=== PATIENT | male | born 1960 | race Caucasian/White ===

== ENCOUNTER → 2017-07-27 | Outpatient (REF) | payer OTHER | LOC: M SFHCLERA 09:32 | DX: R30.0 Dysuria (principal) | CPT/HCPCS: 87086 ==

== ENCOUNTER → 2017-07-27 | Outpatient (CLI) | payer OTHER | LOC: M LRY 09:54 | DX: R30.0 Dysuria (principal) ==

== ENCOUNTER 2023-02-17 07:25 | Outpatient (CLI) | payer OTHER ==
[~2023-02-17] VITALS: Ht 180.3 cm; Wt 109.0 kg
[~2023-02-17 07:25] MED LIST: ADDE30CA3 PO; ALBUTEROL SULFATE 2.5MG/0.5ML INH NEB SOLN INH PRN; EPINEPHrine INJ 1 MG/ML 1ML AMP IM PRN; TRAZ-257 PO; VIST50CA PO; XANA2TAB2 PO; ZOLO100T PO; diphenhydrAMINE 50MG/ML VIAL IV PRN; methylPREDNISolone 125MG 2ML VIAL IV PRN
[2023-02-17 08:04] VITALS: BP 139/91; TEMP 97.9; O2SAT 99
[2023-02-17] MEDS ORDERED: methylPREDNISolone 125MG 2ML VIAL IV ONE (08:30)
[2023-02-17] MEDS ORDERED: diphenhydrAMINE 50MG CAP PO ONE (08:30)
[2023-02-17] MEDS ORDERED: riTUXimab 1,000 MG in NS 900 ML IV ONE (08:30)
[2023-02-17] MEDS ORDERED: ACETAMINOPHEN TAB 650MG DOSE (2X325MG) PO ONE (08:30)
[2023-02-17 09:00] VITALS: BP 160/86; TEMP 97.9; O2SAT 98
[2023-02-17 10:00] VITALS: BP 121/69; TEMP 98.1; O2SAT 97
[2023-02-17 10:30] VITALS: BP 135/69; TEMP 98.3; O2SAT 96
[2023-02-17 11:30] VITALS: BP 161/79; TEMP 97.6; O2SAT 96
[2023-02-17 12:40] VITALS: BP 172/81; TEMP 97.9; O2SAT 97
== END 2023-02-17 12:50 ==
LOC: M INFU 07:25
PROVIDERS: ATTEND Internal Medicine Rheumatology
DX: M06.09 Rheumatoid arthritis without rheumatoid factor, multiple sites (principal); Z88.8 Allergy status to other drugs, medicaments and biological substances
CPT/HCPCS: 96413; 96415; J2930; J9312

== ENCOUNTER 2023-03-03 06:42 | Outpatient (CLI) | payer OTHER ==
[~2023-03-03] VITALS: Ht 180.3 cm; Wt 106.5 kg
[~2023-03-03 06:42] MED LIST changes: -ALBUTEROL SULFATE 2.5MG/0.5ML INH NEB SOLN INH PRN; -EPINEPHrine INJ 1 MG/ML 1ML AMP IM PRN; -diphenhydrAMINE 50MG/ML VIAL IV PRN; -methylPREDNISolone 125MG 2ML VIAL IV PRN
[2023-03-03 07:00] VITALS: BP 142/92; O2SAT 99
[2023-03-03] MEDS ORDERED: ALBUTEROL SULFATE 2.5MG/0.5ML INH NEB SOLN INH PRN (07:01)
[2023-03-03] MEDS ORDERED: EPINEPHrine INJ 1 MG/ML 1ML AMP IM PRN (07:01)
[2023-03-03] MEDS ORDERED: methylPREDNISolone 125MG 2ML VIAL IV PRN (07:01)
[2023-03-03] MEDS ORDERED: diphenhydrAMINE 50MG/ML VIAL IV PRN (07:01)
[2023-03-03] MEDS ORDERED: ACETAMINOPHEN 650MG PO PRIOR TO INFUSION PO ONE (07:30)
[2023-03-03] MEDS ORDERED: methylPREDNISolone 125MG 2ML VIAL IV ONE (07:30)
[2023-03-03] MEDS ORDERED: diphenhydrAMINE 50MG PO PRIOR TO INFUSION PO ONE (07:30)
[2023-03-03] MEDS ORDERED: riTUXimab 1,000 MG in NS 900 ML IV ONE (07:30)
[2023-03-03 08:45] VITALS: BP 147/83; O2SAT 98
[2023-03-03 09:15] VITALS: BP 143/77; O2SAT 98
[2023-03-03 09:45] VITALS: BP 134/87; O2SAT 98
[2023-03-03 10:15] VITALS: BP 127/75; O2SAT 97
[2023-03-03 11:15] VITALS: BP 130/71; O2SAT 98
== END 2023-03-03 11:30 | disposition home or self-care (01) ==
LOC: M INFU 06:42
PROVIDERS: ATTEND Internal Medicine Rheumatology
DX: M06.09 Rheumatoid arthritis without rheumatoid factor, multiple sites (principal)
CPT/HCPCS: 96365; 96366; 96367; J2930; J9312

== ENCOUNTER → 2023-04-10 | Outpatient (REF) | payer OTHER | LOC: M SFHCRHEU 15:44 | PROVIDERS: ATTEND Internal Medicine Rheumatology | DX: M06.09 Rheumatoid arthritis without rheumatoid factor, multiple sites (principal); R76.8 Other specified abnormal immunological findings in serum; M15.9 Polyosteoarthritis, unspecified; H15.003 Unspecified scleritis, bilateral ==

== ENCOUNTER → 2023-07-11 | Outpatient (CLI) | payer OTHER ==
[2023-07-11 11:23] LABS: BASO % 0.5 % (0.0-1.0); EOS # 0.2 10^3/uL (0.0-0.5); EOS % 3.4 % (0.0-3.0); HEMATOCRIT 38.8 % (42.0-52.0); HEMOGLOBIN 13.2 g/dl (13.5-17.5); LYMPH # 1.6 10^3/uL (1.5-5.0); LYMPH % 27.2 % (24.0-44.0); MEAN CORPUSCULAR HEMOGLOBIN 31.2 pg (27.0-33.0); MEAN CORPUSCULAR VOLUME 91.7 fl (80.0-96.0); MONO # 0.7 10^3/uL (0.0-0.8); NEUTROPHILS # 3.3 10^3/uL (1.5-8.5); NEUTROPHILS % 55.9 % (36.0-66.0); PLATELET COUNT, AUTOMATED 212 10^3/uL (150-450); RED BLOOD COUNT 4.23 10^6/uL (4.30-6.10); WHITE BLOOD COUNT 5.8 10^3/uL (4.0-10.0)
[2023-07-11 11:27] LABS: ERYTHROCYTE SEDIMENTATION RATE 7 mm/hr (0-20)
[2023-07-11 11:45] LABS: ALBUMIN 3.4 G/DL (3.2-5.2); ALKALINE PHOSPHATASE 53 U/L (46-116); ALT/SGPT 25 U/L (7.0-40); AST/SGOT 19 U/L (<34); BILIRUBIN,TOTAL 0.3 MG/DL (0.3-1.2); BLOOD UREA NITROGEN 15 MG/DL (9-23); CALCIUM LEVEL 9.2 MG/DL (8.3-10.6); CARBON DIOXIDE LEVEL 36 MMOL/L (20-31); CHLORIDE LEVEL 105 MMOL/L (98-107); CREATININE FOR GFR 1.11 MG/DL (0.70-1.30); GLOMERULAR FILTRATION RATE > 60.0 (>49); GLUCOSE, FASTING 69 MG/DL (74-106); POTASSIUM SERUM 4.9 MMOL/L (3.5-5.1); SODIUM LEVEL 142 MMOL/L (136-145); TOTAL PROTEIN 5.7 G/DL (5.7-8.2)
== END ==
LOC: M LAB 10:12
PROVIDERS: ATTEND Internal Medicine Rheumatology
DX: M06.09 Rheumatoid arthritis without rheumatoid factor, multiple sites (principal); M15.9 Polyosteoarthritis, unspecified; H15.003 Unspecified scleritis, bilateral; R76.8 Other specified abnormal immunological findings in serum

== ENCOUNTER → 2023-07-17 | Outpatient (REF) | payer OTHER | LOC: M SFHCRHEU 15:43 | PROVIDERS: ATTEND Internal Medicine Rheumatology | DX: M06.09 Rheumatoid arthritis without rheumatoid factor, multiple sites (principal); R76.8 Other specified abnormal immunological findings in serum; M15.9 Polyosteoarthritis, unspecified; H15.003 Unspecified scleritis, bilateral ==

== ENCOUNTER → 2025-01-31 | Outpatient (CLI) | payer OTHER | LOC: M CARPUL 09:18 | PROVIDERS: ATTEND Internal Medicine | DX: R01.1 Cardiac murmur, unspecified (principal) ==